=== PATIENT | female | born 2000 | race Caucasian/White ===

== ENCOUNTER 2023-05-27 11:52 | Emergency (ER) | payer OTHER, SELFPAY ==
[2023-05-27 12:20] VITALS: BP 106/61; PULSE 61; RESP 18; TEMP 37.1; O2SAT 97; BMI 23.3
--- NOTE | 2023-05-27 12:21 | ED.SYNCOPE ---
HPI - Syncope General Chief Complaint: Syncope Stated Complaint: Headache, dizziness, fainting Time Seen by Provider: 05/27/23 15:55 History of Present Illness HPI narrative: The patient is a 23-year-old female comes to the emergency room because of episodes of syncope associated with headaches. She says that she has episodes in which she feels dizzy and then faints then has a very bad headache. She has had these problems for some time, possibly several years. She gets episodes perhaps once a month or perhaps slightly more. During the last week she has had 3 of these episodes, one last , one 2 days ago on Thursday, and again today. She went to the emergency room at [facility] on Thursday morning after the episode on and says that she was told that she was dehydrated. She was discharged after blood work and an EKG. The patient says she had another episode today and call her PCPs office and was advised to come back to the emergency room. The patient says she 1st started having episodes like this when she was told that she had allergies several years ago. Patient is on oral contraceptive. No neck stiffness. No fever, sweats, chills. The patient's mother is with her and seems very concerned that the patient has had 3 of these episodes in 1 week. Related Data Allergies Allergy/AdvReac Type Severity Reaction Status Date / Time No Known Allergies Allergy Verified 05/27/23 12:20 Review of Systems Review of Systems: Yes all other systems are reviewed and are [facility] Social History Social History Advance Directives: No Advance Directives Information Provided: No Physical Exam Vital Signs: Vital Signs: Last Vital Signs Temp 98.1 F 05/27/23 16:27 Pulse 48 L 05/27/23 16:27 Resp 16 05/27/23 16:27 BP 100/57 L 05/27/23 16:27 Pulse Ox 98 05/27/23 16:27 O2 Del Method Room Air 05/27/23 16:27 BMI result Body Mass Index 23.3 Const: Other: Patient is a slim 23-year-old who is awake and alert who does not appear obvious distress or discomfort. HEENT: Other: The face is symmetrical. Mucous membranes moist. Tympanic membranes unremarkable. Eyes: Other: Pupils are round equal, conjunctivae are clear, extraocular movements intact. Neck: Other: No nuchal rigidity. Neck is entirely supple. No adenopathy. Resp: Effort & Inspection: normal respiratory effort Auscultation: clear to auscultation bilaterally Cardio: Other: No murmur Jugular venous distension: no JVD Rate: regular rate Rhythm: regular rhythm Skin: General skin exam: no rashes or lesions noted Rashes: no rashes Neuro: Other: The patient is awake and alert. GCS is 15. Neck is entirely supple. Pupils are round equal and reactive to light. Face is symmetrical. Speech is clear. Moving all 4 extremities normally. Seems neurologically intact. Extrem: Other: No peripheral edema. Course Course Course Narrative: RME: 23 yo F w/no sig PMHx presenting to the ED c/o HERNANDEZ, dizziness & multiple syncopal episodes (last & Thursday) w/presyncope today. ?head injury on when passed out. denies SOB, CP Patient was seen at [facility] Thursday morning EKG, Labs, UA, Viral stdudies, Orthos ordered Full HPI, ROS and PE to be performed by primary ED provider. Medical Decision Making Medical Decision Making [facility] Narrative: The patient is a 23-year-old female who presents complaining of episodes of syncope and headache. She says that she has had 3 such episodes in the last week but she also describes similar episodes occurring with fair degree of frequency over the last several years. Clinically the patient looks very well. Since she is on a control pill I sent a D-dimer to evaluate for the possibility of sinus venous thrombosis as the cause of her headaches or possibly a PE as the cause of her syncopal episodes although she looks well and has a bradycardic heart rate. Her D-dimer was undetectable. Her other labs and her EKG are quite reassuring. Her clinical exam is likewise very reassuring. I do not think there is any acutely dangerous process at work. She describes symptoms that have been bothering her for several years. Whether she will need to see a medical technologist clinical and possibly have a tilt-table test over that she will need to see a neurologist and be evaluated for possible atypical seizures or headaches might also be considered. The patient was offered treatment for her headache but said her headache pain was already getting better. She was eager for discharge after labs were back. She has an appointment with her PCP tomorrow. Lab Data 05/27/23 13:03 05/27/23 13:03 Labs: Lab Results 05/27/23 05/27/23 Range/Units 13:03 13:03 WBC 6.7 (4.8-10.8) X10*3/uL RBC 4.19 L (4.20-5.50) X10*6/uL Hgb 12.3 (12.0-16.0) g/dl Hct 37.2 (37.0-47.0) % MCV 88.8 (80.0-98.0) fL MCH 29.4 (27.0-33.0) pg MCHC 33.1 (31.0-35.0) g/dl RDW 12.3 (11.0-16.0) % Plt Count 309 (160-400) X10*3/uL MPV 9.9 (9.4-12.3) fL Immature Gran % (Auto) 0.4 (0.0-0.4) % Neut % (Auto) 64.3 (45-73) % Lymph % (Auto) 26.8 (20-40) % [place] % (Auto) 4.6 (2-11) % Eos % (Auto) 3.6 (0-4) % Baso % (Auto) 0.3 (0-2) % Lymph # (Auto) 1.8 (1.2-4.9) X10*3/uL [place] # (Auto) 0.3 (0.1-1.2) X10*3/uL Eos # (Auto) 0.2 (0.0-0.4) X10*3/uL Baso # (Auto) 0.0 (0.0-0.2) X10*3/uL Abs Immat Gran (auto) 0.03 (0.00-0.03) X10*3/uL Absolute Neuts (auto) 4.3 (2.0-8.3) x10*3/uL Absolute Nucleated RBC 0.000 (0.0-0.012) X10*3/uL Nucleated RBC % (auto) 0.0 (0.0-0.2) /100WBC PT 11.6 (11.1-13.3) SEC INR 1.0 (0.9-1.1) D-Dimer High Sensitivty < 150 NG/ML Sodium 140 (135-145) mmol/L Potassium 3.3 (3.3-5.1) mmol/L Chloride 106 (96-108) mmol/L Carbon Dioxide 24 (22-29) mmol/L Anion Gap 13 (12-20) BUN 9 (9-16) mg/dL Creatinine 0.67 (0.5-1.4) mg/dL Estim Creat Clear Calc 118.5 Estimated GFR > 60 Random Glucose 104 (60-115) mg/dL Calcium 9.0 (8.4-10.2) mg/dL Magnesium 2.2 (1.6-2.6) mg/dL Total Bilirubin 0.3 (0.0-1.0) mg/dL Direct Bilirubin 0.1 (0.0-0.5) mg/dL AST 9 (5-31) U/L ALT 6 (0-31) U/L Alkaline Phosphatase 47 (39-117) U/L Troponin I High Sens < 2.7 (<3.5-17.0) ng/L C-Reactive Protein 0.17 Cancelled (< or = 0.50) mg/dL Total Protein 7.1 (6.5-8.0) g/dL Albumin 3.9 (3.5-5.0) g/dL Urine Color Straw Urine Appearance Clear Urine pH 5.5 (5.0-9.0) Ur Specific [place] 1.010 (1.005-1.025) Urine Protein Negative (Neg-Trace) mg/dL Urine Glucose (UA) Negative (Negative) mg/dL Urine Ketones Negative (Negative) mg/dL Urine Blood Negative (Negative) Urine Nitrite Negative (Negative) Ur Leukocyte Esterase Negative (Negative) Urine Test NEGATIVE (NEGATIVE) Urine Opiates Screen Not Detected (Not Detect) Urine Fentanyl Screen Not Detected (Not Detect) Ur Barbiturates Screen Not Detected (Not Detect) Ur Phencyclidine Scrn Not Detected (Not Detect) Ur Amphetamines Screen Not Detected (Not Detect) U Benzodiazepines Scrn Not Detected (Not Detect) Urine Cocaine Screen Not Detected (Not Detect) U Marijuana (THC) Screen POSITIVE H (Not Detect) Influenza Type A (PCR) NEGATIVE (Negative) Influenza Type B (PCR) NEGATIVE (Negative) RSV RNA Qual (PCR) NEGATIVE (Negative) SARS-CoV-2 RNA (RT-PCR) NEGATIVE (Negative) Independent Interpretation I performed an independent interpretation of an: EKG Interpretation: EKG at 12:51 shows sinus bradycardia at 56 beats per minute. Unremarkable EKG. Discharge Plan Discharge Clinical Impression: Syncope, Headache Patient Disposition: Home, Self-Care Additional Instructions: Your testing in the emergency room today is reassuring. Please keep your appointment with your regular doctor tomorrow. I think it would be reasonable for you to discuss referral to a neurologist and/or a medical technologist clinical to investigate these symptoms further. Return to the emergency room if you are significantly worse. Referrals: Patience Rodriguez PA [Physician Investment Counselor] - Stand Alone Forms: Work/School Release Interventions: ED Discharge Assessment Last Done: 05/27/23 17:09 Discharge Date/Time: 05/27/23 17:11
--- NOTE | 2023-05-27 12:23 | ECG_ITS ---
Test Reason : SYNCOPE Blood Pressure : / mmHG Vent. Rate : 056 BPM Atrial Rate : 056 BPM P-R Int : 144 ms QRS Dur : 082 ms QT Int : 422 ms P-R-T Axes : 044 048 039 degrees QTc Int : 407 ms Sinus bradycardia with sinus arrhythmia Otherwise normal ECG No previous ECGs available Referred By: Karrie Ledesma Electronically Signed By:NOLAN CHAVEZ MD
[2023-05-27 13:09] LABS: MANUAL DIFF FLAG NO
[2023-05-27 13:11] LABS: Basophils Percent Auto 0.3 % (0-2); Eosinophils Absolute Auto 0.2 X10*3/uL (0.0-0.4); Eosinophils Percent Auto 3.6 % (0-4); Hematocrit 37.2 % (37.0-47.0); Hemoglobin 12.3 g/dl (12.0-16.0); Imm Gran Abs Auto 0.03 X10*3/uL (0.00-0.03); Imm Gran Pct Auto 0.4 % (0.0-0.4); Lymphocytes Absolute Auto 1.8 X10*3/uL (1.2-4.9); Lymphocytes Percent Auto 26.8 % (20-40); Mean Corpuscular HGB Conc 33.1 g/dl (31.0-35.0); Mean Corpuscular Hemoglobin 29.4 pg (27.0-33.0); Mean Corpuscular Volume 88.8 fL (80.0-98.0); Mean Platelet Volume 9.9 fL (9.4-12.3); Monocytes Absolute Auto 0.3 X10*3/uL (0.1-1.2); Monocytes Percent Auto 4.6 % (2-11); Neutrophils Absolute Auto 4.3 x10*3/uL (2.0-8.3); Neutrophils Percent Auto 64.3 % (45-73); Platelet Count 309 X10*3/uL (160-400); Red Blood Count 4.19 X10*6/uL (4.20-5.50); Red Cell Distribution Width 12.3 % (11.0-16.0); White Blood Count 6.7 X10*3/uL (4.8-10.8)
[2023-05-27 13:16] LABS: Appearance Urine Clear; Color Urine Straw; Glucose Urine UA Negative (Negative); Leukocyte Esterase Urine Negative (Negative); Nitrite Urine Negative (Negative); PH 5.5 (5.0-9.0); Urine Blood Negative (Negative); Urine Ketones Negative (Negative); Urine Protein Negative (Neg-Trace)
[2023-05-27 13:19] LABS: Prothrombin Time 11.6 SEC (11.1-13.3)
[2023-05-27 13:20] LABS: Urine Pregnancy NEGATIVE (NEGATIVE)
[2023-05-27 13:21] LABS: UPreg QC Valid YES
[2023-05-27 13:22] LABS: Amphetamine Screen Urine Not Detected (Not Detect); Barbiturates, Urine Not Detected (Not Detect); Benzodiazepines Screen Urine Not Detected (Not Detect); Cannabinoid Screen Urine POSITIVE (Not Detect); Cocaine Screen Urine Not Detected (Not Detect); Fentanyl, urine Not Detected (Not Detect); Opiate Screen Urine Not Detected (Not Detect); Phencyclidine Screen Urine Not Detected (Not Detect)
[2023-05-27 13:26] LABS: Alanine Aminotransferase 6 U/L (0-31); Albumin Level 3.9 g/dL (3.5-5.0); Alkaline Phosphatase 47 U/L (39-117); Anion Gap 13 (12-20); Aspartate Amino Transferase 9 U/L (5-31); Bilirubin Direct 0.1 mg/dL (0.0-0.5); Bilirubin Total 0.3 mg/dL (0.0-1.0); Blood Urea Nitrogen 9 mg/dL (9-16); Carbon Dioxide 24 mmol/L (22-29); Chloride 106 mmol/L (96-108); Creatinine Clr Calc Pharmacy 118.5; Estimated Glomerular Filt Rate > 60; Glucose Random 104 mg/dL (60-115); Magnesium 2.2 mg/dL (1.6-2.6); Potassium 3.3 mmol/L (3.3-5.1); Sodium 140 mmol/L (135-145); Total Protein 7.1 g/dL (6.5-8.0)
[2023-05-27 13:34] LABS: Troponin-I High Sensitivity < 2.7 ng/L (<3.5-17.0)
[2023-05-27 14:05] LABS: Influenza A PCR NEGATIVE (Negative); Influenza B PCR NEGATIVE (Negative); Resp Syncy Virus RNA Qual PCR NEGATIVE (Negative); SARS COV2 PCR INHOUSE NEGATIVE (Negative)
[2023-05-27 16:24] VITALS: BP 94/49; PULSE 47
[2023-05-27 16:25] VITALS: BP 106/59; PULSE 51
[2023-05-27 16:26] VITALS: BP 104/68; PULSE 61
[2023-05-27 16:27] VITALS: BP 100/57; PULSE 48; RESP 16; TEMP 36.7; O2SAT 98
[2023-05-27 16:31] LABS: D Dimer High Sensitivity < 150 NG/ML
[2023-05-27 16:33] LABS: C Reactive Protein 0.17 mg/dL (< or = 0.50)
--- NOTE | 2023-05-27 17:07 | PC.NURSE ---
Initially met with patient for assessment. Mother at bedside. Patient is refusing labs and wants to go home. Encouraged patient to stay and have further testing due to concern for headache and further syncopal events. Patient states that she will follow up with pcp in the morning. made aware. DC paper work completed. Refused ending vitals.
== END 2023-05-27 17:11 | disposition home or self-care (01) ==
PROVIDERS: Physician Assistant; Emergency Provider Emergency Medicine
DX: R55 Syncope and collapse (principal); R51.9 Headache, unspecified; Z20.822 Contact with and (suspected) exposure to COVID-19; Z20.828 Contact with and (suspected) exposure to other viral communicable diseases; R42 Dizziness and giddiness; F12.90 Cannabis use, unspecified, uncomplicated
CPT/HCPCS: 0241U; 36415; 80048; 80076; 80307; 81003; 81025; 83735; 84484; 85025; 85379; 85610; 86140; 93005; 99284

== ENCOUNTER → 2023-05-27 12:23 | Outpatient (BNV) | payer OTHER, SELFPAY | PROVIDERS: Emergency Provider Emergency Medicine; Visit Provider Internal Medicine Cardiovascular Disease | DX: R00.1 Bradycardia, unspecified (principal) | CPT/HCPCS: 93010 ==

== ENCOUNTER 2024-12-27 11:40 | Emergency (ER) | payer OTHER, SELFPAY ==
--- OUTSIDE RECORDS SUMMARY | 2024-12-26 16:29 | XMS_ITS | Encounter Summary ---
Author Organization [facility] Address [address] [place] [address] Care Team Providers Care Baked Goods Stock Clerk Name Role Phone Unavailable Primary Care Provider Unavailabl e Reason for Visit * Reason Comments Syncope Encounter Details Date Type Department Care Team (Late st Contact Info) Description 12/26/2024 4:29 PM EDT - 12/26/2024 8:00 PM EDT Emergency [facility] Emergency [address] [place] [address] Discharge Disposition: Home or Self Care Social History Tobacco Use Types Packs/Day Years Used Date Smoking Tobacco: Never Assessed Comments Unknown Sex and Gender Information Value Date Recorded Sex Assigned at Not on file Legal Sex Female 8:28 PM EST Gender Identity Not on file Sexual Orientation Not on file documented as of this encounter Last Filed Vital Signs Vital Sign Reading Time Taken Comments Blood Pressure 103/58 12/26/2024 4:32 PM EDT Pulse 65 12/26/2024 4:32 PM EDT Temperature 36.7 C (98.1 F) 12/26/2024 4:32 PM EDT Respiratory Rate 18 12/26/2024 4:32 PM EDT Oxygen Saturation 98% 12/26/2024 4:32 PM EDT Inhaled Oxygen Concentration - - Weight 77.1 kg (170 lb) 12/26/2024 4:32 PM EDT Height 165.1 cm (5' 5 ) 12/26/2024 4:32 PM EDT Body Mass Index 28.29 12/26/2024 4:32 PM EDT documented in this encounter Discharge Disposition Disposition Code Departure Means Destination Home or Self Care documented in this encounter Progress Notes * Ted Roe RN - 12/26/2024 4:31 PM EDT Patient had a witnessed sycopal episode on Thursday, struck her head with approximite 2 minutes of loc. Woke Thursday with a headache and was seen at urgent care today and sent in for further eval. documented in this encounter Plan of Treatment Not on file documented as of this encounter Procedures Procedure Name Priority Date/Time Associated Diagnosis Comments URINALYSIS WITH REFLEX MICROSCOPIC AND CULTURE STAT 12/26/2024 7:37 PM EDT STUBBS URINE CULTURE TUBE STAT 12/26/2024 7:37 PM EDT URINALYSIS WITH REFLEX MICROSCOPIC AND CULTURE STAT 12/26/2024 7:37 PM EDT POC , URINE DIAGNOSTIC STAT 12/26/2024 7:37 PM EDT CBC WITH AUTO DIFFERENTIAL STAT 12/26/2024 6:23 PM EDT CBC AND DIFFERENTIAL STAT 12/26/2024 6:23 PM EDT COMPREHENSIVE METABOLIC PANEL STAT 12/26/2024 6:23 PM EDT documented in this encounter Results * Stubbs urine culture tube (12/26/2024 7:37 PM EDT) Extra Tube Hold for add-ons. 12/26/2024 9:01 PM EDT [facility] Comment:Auto resulted. Urine Urine specimen obtained by clean catch procedure / Unknown Non-blood Collection / Unknown 12/26/2024 7:37 PM EDT 12/26/2024 7:49 PM EDT us Mike Hidalgo MD LAB URINE ORDERABLES Final Result [facility] [address] [place] [address], [place] [phone] * (ABNORMAL) Urinalysis with reflex microscopic and culture (12/26/2024 7:37 PM EDT) Specific [place] Urine 1.033(H) 1.003 - 1.030 LAB URINALYSIS - AUTOMATED METHOD 12/26/2024 8:25 PM [facility] pH, Urine 6.0 5.0 - 8.0 pH LAB URINALYSIS - AUTOMATED METHOD 12/26/2024 8:25 PM [facility] Leukocytes, Urine Negative Negative LAB URINALYSIS - AUTOMATED METHOD 12/26/2024 8:25 PM [facility] Nitrite, Urine Negative Negative LAB URINALYSIS - AUTOMATED METHOD 12/26/2024 8:25 PM [facility] Protein, Urine 30(A) <=Trace mg/dL LAB URINALYSIS - AUTOMATED METHOD 12/26/2024 8:25 PM [facility] Glucose, Urine Negative Negative mg/dL LAB URINALYSIS - AUTOMATED METHOD 12/26/2024 8:25 PM [facility] Ketones, Urine 15(A) Negative mg/dL LAB URINALYSIS - AUTOMATED METHOD 12/26/2024 8:25 PM [facility] Urobilinogen , Urine 1.0 0.2 - 1.0 mg/dL LAB URINALYSIS - AUTOMATED METHOD 12/26/2024 8:25 PM [facility] Bilirubin, Urine Negative Negative LAB URINALYSIS - AUTOMATED METHOD 12/26/2024 8:25 PM [facility] Blood, Urine Negative Negative LAB URINALYSIS - AUTOMATED METHOD 12/26/2024 8:25 PM [facility] RBC, Urine 1 0 - 4 /HPF LAB URINALYSIS - AUTOMATED METHOD 12/26/2024 8:25 PM [facility] WBC, Urine 4.2(H) 0 - 4 /HPF LAB URINALYSIS - AUTOMATED METHOD 12/26/2024 8:25 PM EDT [facility] Squamous Epithelial, Urine 95(H) 0 - 60 /LPF LAB URINALYSIS - AUTOMATED METHOD 12/26/2024 8:25 PM EDT [facility] Crystals, Urine LT SAUL URATES /LPF LAB URINALYSIS - AUTOMATED METHOD 12/26/2024 8:25 PM EDT [facility] Bacteria, Urine Negative Negative /HPF LAB URINALYSIS - AUTOMATED METHOD 12/26/2024 8:25 PM EDT [facility] Hyaline Casts, Urine 4(H) 0 - 3 /LPF LAB URINALYSIS - AUTOMATED METHOD 12/26/2024 8:25 PM EDT [facility] Mucus, Urine Large None /HPF LAB URINALYSIS - AUTOMATED METHOD 12/26/2024 8:25 PM EDT [facility] Urine Urine specimen obtained by clean catch procedure / Unknown Non-blood Collection / Unknown 12/26/2024 7:37 PM EDT 12/26/2024 7:49 PM EDT Mike Hidalgo MD LAB URINE ORDERABLES Final Result [facility] [address] [place] [address], [place] [phone] * POC , urine manually resulted (12/26/2024 7:37 PM EDT) HCG, Ur POC Negative Negative POC hCG Int QC Pass? Yes Yes Urine Urine specimen obtained by clean catch procedure / Unknown 12/26/2024 7:37 PM EDT Mike Hidalgo MD POINT OF CARE TEST ENTER/ED IT ORDERABLES Final Result * CBC auto differential (12/26/2024 6:23 PM EDT) WBC 7.1 4.8 - 10.8 K/[facility] LAB HEMETOLOGY METHOD 12/26/2024 6:49 PM EDT [facility] RBC 4.50 3.80 - 4.80 M/mcL LAB HEMETOLOGY METHOD 12/26/2024 6:49 PM EDT [facility] Hemoglobin 13.4 11.5 - 16.0 g/dL LAB HEMETOLOGY METHOD 12/26/2024 6:49 PM EDT [facility] Hematocrit 40.6 35.0 - 47.0 % LAB HEMETOLOGY METHOD 12/26/2024 6:49 PM EDT [facility] MCV 91.2 79.0 - 98.0 FL LAB HEMETOLOGY METHOD 12/[facility]24 [facility] MCH 30.1 27.0 - 32.0 pcg LAB HEMETOLOGY METHOD 12/26/2024 6:49 PM [facility] MCHC 33.0 32.0 - 37.0 g/dL LAB HEMETOLOGY METHOD 12/26/2024 6:49 PM [facility] RDW 12.9 11.0 - 15.0 % LAB HEMETOLOGY METHOD 12/26/2024 6:[facility] Platelets 306 130 - 400 K/mcL LAB HEMETOLOGY METHOD 12/26/2024 6:[facility] MPV 10.3 7.0 - 11.0 FL LAB HEMETOLOGY METHOD 12/26/2024 6:49 PM EDT [facility] NRBC 0.0 <1.0 % LAB HEMETOLOGY METHOD 12/26/2024 6:[facility] NRBC Absolute 0.00 <0.10 K/mcL LAB HEMETOLOGY METHOD 12/26/2024 6:[facility] Neutrophils Relative 68.3 % LAB HEMETOLOGY METHOD 12/26/2024 6:49 PM EDT [facility] Lymphocytes Relative 22.9 % LAB HEMETOLOGY METHOD 12/26/2024 6:49 PM EDT [facility] Monocytes Relative 6.5 % LAB HEMETOLOGY METHOD 12/26/2024 6:[facility] Eosinophils Relative 1.8 % LAB HEMETOLOGY METHOD 12/26/2024 6:49 PM EDT [facility] Basophils Relative 0.4 % LAB HEMETOLOGY METHOD 12/26/2024 6:49 PM [facility] Immature Granulocytes Relative 0.1 % LAB HEMETOLOGY METHOD 12/26/2024 6:49 PM [facility] Neutrophils Absolute 4.85 1.50 - 7.00 K/mcL LAB HEMETOLOGY METHOD 12/26/2024 6:49 PM [facility] Lymphocytes Absolute 1.63 1.00 - 5.00 K/mcL LAB HEMETOLOGY METHOD 12/26/2024 6:49 PM [facility] Monocytes Absolute 0.46 0.20 - 1.00 K/mcL LAB HEMETOLOGY METHOD 12/26/2024 6:49 PM [facility] Eosinophils Absolute 0.13 0.00 - 0.50 K/mcL LAB HEMETOLOGY METHOD 12/26/2024 6:49 PM [facility] Basophils Absolute 0.03 0.00 - 0.20 K/mcL LAB HEMETOLOGY METHOD 12/26/2024 6:49 PM [facility] Immature Granulocytes Absolute 0.01 0.00 - 0.03 K/mcL LAB HEMETOLOGY METHOD 12/26/2024 6:49 PM [facility] Blood Venous blood specimen / Unknown Venipuncture / Unknown 12/26/2024 6:23 PM EDT 12/26/2024 6:40 PM EDT us Mike Hidalgo MD LAB BLOOD ORDERABLES Final Result [facility] [address] [place] [address], * (ABNORMAL) Comprehensive metabolic panel (12/26/2024 6:23 PM EDT) Sodium 138 133 - 145 mmol/L LAB CHEMISTRY METHOD 12/26/2024 7:11 PM [facility] Potassium 3.8 3.5 - 5.5 mmol/L LAB CHEMISTRY METHOD 12/26/2024 7:11 PM [facility] Chloride 105 96 - 110 mmol/L LAB CHEMISTRY METHOD 12/26/2024 7:11 PM [facility] CO2 29 21 - 32 mmol/L LAB CHEMISTRY METHOD 12/26/2024 7:11 PM [facility] Anion Gap 4 3 - 11 LAB CHEMISTRY METHOD 12/26/2024 7:11 PM [facility] Glucose 102(H) 70 - 100 mg/dL LAB CHEMISTRY METHOD 12/26/2024 7:11 PM [facility] BUN 8 5 - 25 mg/dL LAB CHEMISTRY METHOD 12/26/2024 7:11 PM [facility] Creatinine 0.75 0.50 - 1.10 mg/dL LAB CHEMISTRY METHOD 12/26/2024 7:11 PM [facility] eGFR 115 >=60 mL/min/1. 73m2 LAB CHEMISTRY METHOD 12/26/2024 7:11 PM [facility] Comment:Calculation based on the Chronic Kidney Disease Epidemiology Collaboration (CKD-EPI) equation refit without adjustment for race. BUN/Creatinine Ratio 10.7 LAB CHEMISTRY METHOD 12/26/2024 7:11 PM [facility] Calcium 9.4 8.5 - 10.5 mg/dL LAB CHEMISTRY METHOD 12/26/2024 7:11 PM EDT [facility] AST (SGOT) 8(L) 10 - 42 unit/L LAB CHEMISTRY METHOD 12/26/2024 7:11 PM EDT [facility] ALT (SGPT) 12 10 - 60 unit/L LAB CHEMISTRY METHOD 12/26/2024 7:11 PM EDT [facility] Alkaline Phosphatase 74 42 - 121 unit/L LAB CHEMISTRY METHOD 12/26/2024 7:11 PM EDT [facility] Total Protein 7.4 6.0 - 8.0 g/dL LAB CHEMISTRY METHOD 12/26/2024 7:11 PM EDT [facility] Albumin 4.1 3.2 - 5.0 g/dL LAB CHEMISTRY METHOD 12/[facility]24 [facility] Total Bilirubin 0.5 0.0 - 1.4 mg/dL LAB CHEMISTRY METHOD 12/26/2024 7:11 PM EDT [facility] Blood Venous blood specimen / Unknown Venipuncture / Unknown 12/26/2024 6:23 PM EDT 12/26/2024 6:39 PM EDT us Mike Hidalgo MD LAB BLOOD ORDERABLES Final Result [facility] [address] [place] [address], documented in this encounter Visit Diagnoses Not on filedocumented in this encounter
--- NOTE | ~2024-12-27 | CT_ITS ---
EXAMINATION: CT HEAD WITHOUT CONTRAST CLINICAL INFORMATION: syncopal episode, head strike, headache COMPARISON: None available. TECHNIQUE: Contiguous axial imaging was performed from the skull base to vertex without intravenous administration of contrast. This CT examination was performed using dose optimization techniques as appropriate, variously including the following: *Automated exposure control *Adjustment of mA and/or kV according to patient size (this includes techniques or standardized protocols for targeted exams where dose is matched to indication/reason for exam; i.e. extremities or head) *Use of iterative reconstruction technique DLP: 598 mGy-cm FINDINGS: No acute cortical disruption in the bony calvarium. No acute intracranial hemorrhage, mass effect, midline shift, hydrocephalus or herniation. Stubbs-white matter differentiation is normal. Sellar/suprasellar region demonstrated no gross masses. Normal position of the cerebellar tonsils. No air-fluid levels in the paranasal sinuses. For pneumatization of the frontal sinuses. Tympanic cavities and mastoid air cells are aerated. Pneumatized left petrous apex, congenital. No gross hematoma in the intraconal or extraconal compartments of the orbits. The eyeballs are intact. CT/CT head/brain wo IV con IMPRESSION: No acute fracture, bony calvarium. No acute intracranial hemorrhage. No acute or structural brain abnormality by CT Electronically signed by: Willi Ledesma MD 12/27/2024 12:36 PM EDT
[2024-12-27 11:49] VITALS: BP 119/68; PULSE 61; RESP 18; TEMP 36.3; O2SAT 100; BMI 27.8
--- NOTE | 2024-12-27 11:49 | ED_ITS ---
HPI - General Adult General Chief complaint: Head Injury Stated complaint: Passed out 12/24, hit head, nausea Time Seen by Provider: 12/27/24 12:01 History of Present Illness HPI narrative: see other chart (this is double) Related Data Allergies Allergy/AdvReac Type Severity Reaction Status Date / Time No Known Allergies Allergy Verified 12/27/24 11:50 [facility] Social History Social History Smoked in Last 30 Days: Yes Use of substances other than those prescribed or required for medical reasons: Yes Substance Use Type: Marijuana Substance Use Frequency: Chronic Longstanding Last Used Substance: Hours (ago) Any prior treatment program specific to substance use: No Advance Directives: No Advance Directives Information Provided: Yes Patient : No Physical Exam ED Vital Signs: Vital Signs - 24 hr 12/27/24 11:49 12/27/24 12:48 12/27/24 13:34 Temperature 97.3 F 98.0 F 98.0 F Pulse Rate 61 59 59 Respiratory Rate 18 16 16 Blood Pressure 119/68 113/65 113/65 Pulse Oximetry 100 99 99 Oxygen Delivery Method Room Air Room Air Room Air BMI result Body Mass Index 27.8 Course Course Course Narrative: Rapid medical examination performed in triage by Reyna Moraes PA-C. Patient is a 24 year old assigned female at presenting to the emergency department after a syncopal episode. Patient states that she passed out and hit her head on 12/24/2024 and ever since has continued to have a headache and felt generally unwell. Patient states that yesterday around 3pm she went to the [facility] ER who informed her she wouldn't be seen until well after midnight. Detailed physical exam and review of systems are deferred to the educational technology coordinator. EKG, labs, imaging ordered. Patient placed back in the waiting room pending room availability and results. Dr. Mccracken examined and dispositioned this patient. Please refer to his note from 12/27/2024. Medical Decision Making Lab Data 12/27/24 12:24 12/27/24 12:24 Labs: Lab Results 12/27/24 Range/Units 12:24 WBC 6.2 (4.8-10.8) X10*3/uL RBC 4.38 (4.20-5.50) X10*6/uL Hgb 13.1 (12.0-16.0) g/dl Hct 39.9 (37.0-47.0) % MCV 91.1 (80.0-98.0) fL MCH 29.9 (27.0-33.0) pg MCHC 32.8 (31.0-35.0) g/dl RDW 12.8 (11.0-16.0) % Plt Count 293 (160-400) X10*3/uL MPV 10.3 (9.4-12.3) fL Immature Gran % (Auto) 0.2 (0.0-0.4) % Neut % (Auto) 66.3 (45-73) % Lymph % (Auto) 25.1 (20-40) % [place] % (Auto) 5.7 (2-11) % Eos % (Auto) 2.4 (0-4) % Baso % (Auto) 0.3 (0-2) % Lymph # (Auto) 1.6 (1.2-4.9) X10*3/uL [place] # (Auto) 0.4 (0.1-1.2) X10*3/uL Eos # (Auto) 0.2 (0.0-0.4) X10*3/uL Baso # (Auto) 0.0 (0.0-0.2) X10*3/uL Abs Immat Gran (auto) 0.01 (0.00-0.03) X10*3/uL Absolute Neuts (auto) 4.1 (2.0-8.3) x10*3/uL Absolute Nucleated RBC 0.000 (0.0-0.012) X10*3/uL Nucleated RBC % (auto) 0.0 (0.0-0.2) /100WBC Sodium 141 (135-145) mmol/L Potassium 3.5 (3.3-5.1) mmol/L Chloride 106 (96-108) mmol/L Carbon Dioxide 25 (22-29) mmol/L Anion Gap 14 (12-20) BUN 8 L (9-16) mg/dL Creatinine 0.65 (0.5-1.4) mg/dL Estim Creat Clear Calc 137.0 Estimated GFR > 60 Random Glucose 98 (60-115) mg/dL Calcium 9.1 (8.4-10.2) mg/dL Magnesium 2.5 (1.6-2.6) mg/dL Total Bilirubin 0.7 (0.0-1.0) mg/dL AST 20 (5-31) U/L ALT 10 (0-31) U/L Alkaline Phosphatase 72 (39-117) U/L Troponin I High Sens < 2.7 (<3.5-17.0) ng/L Total Protein 7.7 (6.5-8.0) g/dL Albumin 4.8 (3.5-5.0) g/dL Beta HCG, Quant < 2 mIU/mL Discharge Plan Discharge Clinical Impression: Closed head injury, Syncope Patient Disposition: Home, Self-Care Instructions: Head Injury (DC) Additional Instructions: Follow-up with your primary care physician return if you worse Referrals: Patience Rodriguez PA [Primary Care Provider, [facility]] - 12/30/24 Interventions: ED Discharge Assessment Last Done: 12/27/24 13:34 Discharge Date/Time: 12/27/24 13:56 Print Language: Nepali
--- NOTE | 2024-12-27 11:51 | ECG_ITS ---
Test Reason : syncope Blood Pressure : */* mmHG Vent. Rate : 55 BPM Atrial Rate : 55 BPM P-R Int : 156 ms QRS Dur : 64 ms QT Int : 406 ms P-R-T Axes : 49 49 30 degrees QTcB Int : 388 ms Sinus bradycardia with sinus arrhythmia Otherwise normal ECG When compared with ECG of 27-May-2023 12:51, No significant change was found Referred By: Reyna Moraes Electronically Signed By: Jono Murphy
--- NOTE | 2024-12-27 12:26 | ED.HEATRA ---
HPI - Head Injury General Chief complaint: Head Injury Stated complaint: Passed out 12/24, hit head, nausea Time Seen by Provider: 12/27/24 12:01 Source: patient Mode of arrival: ambulatory Limitations: no limitations History of Present Illness HPI Narrative: This is a very pleasant 24 years old the patient presented to the emergency department complaining of headache and dizziness. She states she had a syncopal episode on Thursday hit the head in the floor went to the urgent care yesterday she was sent to the emergency department she went to [facility] she waited for many hours and then she left. Her main complaint of dizziness and headache. She has no comorbidity she does not take any medication Complaint: head injury Onset (ago): day(s) (3) Place: home Loss of Consciousness: unsure Location of injury: occipital Severity: mild Radiation: none Other Injuries: none Related Data Allergies Allergy/AdvReac Type Severity Reaction Status Date / Time No Known Allergies Allergy Verified 12/27/24 11:50 Review of Systems Constitutional: Constitutional: Reports no additional constitutional complaints ENT: Reports system reviewed and no additional complaints, except as documented Cardiovascular: Cardiovascular: Reports no additional cardiovascular complaints [facility] Past Medical History [facility] Narrative: Denies any major medical problems she has a history of a vasovagal episode with syncope Social History Social History Smoked in Last 30 Days: Yes Use of substances other than those prescribed or required for medical reasons: Yes Substance Use Type: Marijuana Substance Use Frequency: Chronic Longstanding Last Used Substance: Hours (ago) Any prior treatment program specific to substance use: No Advance Directives: No Advance Directives Information Provided: Yes Patient : No Physical Exam Exam: Exam: No acute distress looks well Vital Signs: Vital Signs: Last Vital Signs Temp 98.0 F 12/27/24 13:34 Pulse 59 12/27/24 13:34 Resp 16 12/27/24 13:34 BP 113/65 12/27/24 13:34 Pulse Ox 99 12/27/24 13:34 O2 Del Method Room Air 12/27/24 13:34 BMI result Body Mass Index 27.8 Const: General: cooperative Nutritional Appearance: well nourished Orientation/consciousness: patient oriented x3 Limitations: no limitations HEENT: Head: Yes normal to inspection Ears: hearing grossly normal bilaterally General nose exam: Normal external nose present Face and sinus: Yes normal facial exam Mouth: Normal oral and palatal mucosa present Chest: Chest palpation & inspection: normal inspection of the chest Resp: Effort & Inspection: normal respiratory effort Auscultation: clear to auscultation bilaterally Cardio: Jugular venous distension: no JVD Rate: regular rate Rhythm: regular rhythm GI: Inspection: Yes normal to inspection Palpation (GI): Soft to palpation, not firm and nontender Skin: General skin exam: no rashes or lesions noted and elasticity normal Lesions: no lesions Rashes: no rashes Neuro: General: patient oriented x3 Course Reevaluation(s) Reevaluation #1: Workup negative including ST-T labs electrocardiogram this point the patient can be safely discharged home spoke with tear the mother comfortable with the plan of care Time: 13:31 Medical Decision Making Medical Decision Making [facility] Narrative: Patient is here complaining of headache and dizziness she had an syncopal episodes Thursday reasonable to obtain labs imaging EKG 13:[address] negative labs normal electrocardiogram normal she looks well she is now in distress anticipate discharge Differential Diagnosis Differential Diagnoses: The differential diagnosis associated with the presentation includes Subdural hematoma/epidural hematoma/concussion Admission/Observation Consideration of admission/observation: Escalation of care including admission/observation considered Lab Data [facility] Lab Attestation statement: I reviewed the patient's lab results. 12/27/24 12:24 12/27/24 12:24 Labs: Lab Results 12/27/24 Range/Units 12:24 WBC 6.2 (4.8-10.8) X10*3/uL RBC 4.38 (4.20-5.50) X10*6/uL Hgb 13.1 (12.0-16.0) g/dl Hct 39.9 (37.0-47.0) % MCV 91.1 (80.0-98.0) fL MCH 29.9 (27.0-33.0) pg MCHC 32.8 (31.0-35.0) g/dl RDW 12.8 (11.0-16.0) % Plt Count 293 (160-400) X10*3/uL MPV 10.3 (9.4-12.3) fL Immature Gran % (Auto) 0.2 (0.0-0.4) % Neut % (Auto) 66.3 (45-73) % Lymph % (Auto) 25.1 (20-40) % [place] % (Auto) 5.7 (2-11) % Eos % (Auto) 2.4 (0-4) % Baso % (Auto) 0.3 (0-2) % Lymph # (Auto) 1.6 (1.2-4.9) X10*3/uL [place] # (Auto) 0.4 (0.1-1.2) X10*3/uL Eos # (Auto) 0.2 (0.0-0.4) X10*3/uL Baso # (Auto) 0.0 (0.0-0.2) X10*3/uL Abs Immat Gran (auto) 0.01 (0.00-0.03) X10*3/uL Absolute Neuts (auto) 4.1 (2.0-8.3) x10*3/uL Absolute Nucleated RBC 0.000 (0.0-0.012) X10*3/uL Nucleated RBC % (auto) 0.0 (0.0-0.2) /100WBC Sodium 141 (135-145) mmol/L Potassium 3.5 (3.3-5.1) mmol/L Chloride 106 (96-108) mmol/L Carbon Dioxide 25 (22-29) mmol/L Anion Gap 14 (12-20) BUN 8 L (9-16) mg/dL Creatinine 0.65 (0.5-1.4) mg/dL Estim Creat Clear Calc 137.0 Estimated GFR > 60 Random Glucose 98 (60-115) mg/dL Calcium 9.1 (8.4-10.2) mg/dL Magnesium 2.5 (1.6-2.6) mg/dL Total Bilirubin 0.7 (0.0-1.0) mg/dL AST 20 (5-31) U/L ALT 10 (0-31) U/L Alkaline Phosphatase 72 (39-117) U/L Troponin I High Sens < 2.7 (<3.5-17.0) ng/L Total Protein 7.7 (6.5-8.0) g/dL Albumin 4.8 (3.5-5.0) g/dL Beta HCG, Quant < 2 mIU/mL Independent Interpretation I performed an independent interpretation of an: EKG (He) Interpretation: EKG was reviewed interpreted by me as a sinus rhythm rate [address]-T changes normal EKG Radiology Impression Discussion of test interpretation with radiology: I have reviewed the radiologist's reading. Radiologist Impression: No acute intracranial hemorrhage, mass effect, midline shift, hydrocephalus or herniation. Stubbs-white matter differentiation is normal. Sellar/suprasellar region demonstrated no gross masses. Normal position of the cerebellar tonsils. No air-fluid levels in the paranasal sinuses. For pneumatization of the frontal sinuses. Tympanic cavities and mastoid air cells are aerated. Pneumatized left petrous apex, congenital. No gross hematoma in the intraconal or extraconal compartments of the orbits. The eyeballs are intact. CT/CT head/brain wo IV con IMPRESSION: No acute fracture, bony calvarium. No acute intracranial hemorrhage. No acute or structural brain abnormality by CT Electronically signed by: Willi Ledesma MD 12/27/2024 12:36 PM EDT RP Dictated By: Willi Arreaga MD Signed By: <Electronically signed by Willi Barron MD in OV> 12/27/24 1236 Discharge Plan Discharge Clinical Impression: Closed head injury Qualifiers: Encounter type: initial encounter Qualified Code(s): S09.90XA - Unspecified injury of head, initial encounter Syncope Qualifiers: Syncope type: unspecified Qualified Code(s): R55 - Syncope and collapse Patient Disposition: Home, Self-Care Instructions: Head Injury (DC) Additional Instructions: Follow-up with your primary care physician return if you worse Referrals: Patience Rodriguez PA [Primary Care Provider, Family Practice] - 12/30/24 Interventions: ED Discharge Assessment Last Done: 12/27/24 13:34 Print Language: Slovenian
[2024-12-27 12:37] LABS: MANUAL DIFF FLAG NO
[2024-12-27 12:43] LABS: Hematocrit 39.9 % (37.0-47.0); Hemoglobin 13.1 g/dl (12.0-16.0); Imm Gran Abs Auto 0.01 X10*3/uL (0.00-0.03); Imm Gran Pct Auto 0.2 % (0.0-0.4); Lymphocytes Absolute Auto 1.6 X10*3/uL (1.2-4.9); Mean Corpuscular HGB Conc 32.8 g/dl (31.0-35.0); Mean Corpuscular Hemoglobin 29.9 pg (27.0-33.0); Mean Corpuscular Volume 91.1 fL (80.0-98.0); NRBC Abs Auto 0.000 X10*3/uL (0.0-0.012); NRBC Pct Auto 0.0 /100WBC (0.0-0.2); Platelet Count 293 X10*3/uL (160-400); Red Blood Count 4.38 X10*6/uL (4.20-5.50); White Blood Count 6.2 X10*3/uL (4.8-10.8)
[2024-12-27 12:48] VITALS: BP 113/65; PULSE 59; RESP 16; TEMP 36.7; O2SAT 99
[2024-12-27 13:06] LABS: Alanine Aminotransferase 10 U/L (0-31); Albumin Level 4.8 g/dL (3.5-5.0); Alkaline Phosphatase 72 U/L (39-117); Anion Gap 14 (12-20); Aspartate Amino Transferase 20 U/L (5-31); Blood Urea Nitrogen 8 mg/dL (9-16); Calcium 9.1 mg/dL (8.4-10.2); Carbon Dioxide 25 mmol/L (22-29); Chloride 106 mmol/L (96-108); Creatinine Clr Calc Pharmacy 137.0; Estimated Glomerular Filt Rate > 60; Magnesium 2.5 mg/dL (1.6-2.6); Potassium 3.5 mmol/L (3.3-5.1); Sodium 141 mmol/L (135-145); Total Protein 7.7 g/dL (6.5-8.0); Troponin-I High Sensitivity < 2.7 ng/L (<3.5-17.0)
[2024-12-27 13:34] VITALS: BP 113/65; PULSE 59; RESP 16; TEMP 36.7; O2SAT 99
== END 2024-12-27 13:56 | disposition home or self-care (01) ==
PROVIDERS: Physician Assistant Medical; Emergency Provider Emergency Medicine; PCP Physician Assistant Medical
DX: S09.90XA Unspecified injury of head, initial encounter (principal); W17.89XA Other fall from one level to another, initial encounter; R51.9 Headache, unspecified; R55 Syncope and collapse; Y93.9 Activity, unspecified; Y92.9 Unspecified place or not applicable; Y99.9 Unspecified external cause status
CPT/HCPCS: 36415; 70450; 80053; 83735; 84484; 84702; 85025; 93005; 99284

== ENCOUNTER → 2024-12-27 11:51 | Outpatient (BNV) | payer OTHER, SELFPAY | PROVIDERS: Emergency Provider Emergency Medicine; PCP Physician Assistant Medical; Visit Provider Internal Medicine Cardiovascular Disease | DX: I49.9 Cardiac arrhythmia, unspecified (principal); R00.1 Bradycardia, unspecified | CPT/HCPCS: 93010 ==

== ENCOUNTER → 2024-12-27 11:51 | Outpatient (BNV) | payer OTHER, SELFPAY | PROVIDERS: Emergency Provider Emergency Medicine; PCP Physician Assistant Medical; Visit Provider Radiology Diagnostic Radiology | DX: R55 Syncope and collapse (principal) | CPT/HCPCS: 70450 ==